=== PATIENT | female | born 1955 | race Caucasian/White ===

== ENCOUNTER → 2024-12-23 11:53 | Outpatient (CLI) | payer MEDICARE, SELFPAY ==
--- NOTE | ~2024-12-23 | XR_ITS ---
AP view of the pelvis and AP and lateral views of the right hip Clinical history: Pain Findings: No acute fracture or dislocation is seen. Old, healed fracture deformity the proximal right femur with orthopedic hardware in place. Osseous alignment is anatomic. Bilateral hip and SI joint s paces are preserved. Vascular stent noted at the mid thigh. Impression: No acute abnormality. Prior ORIF of the proximal right femur with healed fracture deformity. Vascular stent at the right mid thigh. Reviewed, dictated and finalized at location . Impression: No acute abnormality. Prior ORIF of the proximal right femur with healed fracture deformity. Vascular stent at the right mid thigh.
== END ==
PROVIDERS: PCP Nurse Practitioner Family; Visit Provider Nurse Practitioner Family
DX: M84.750A Atypical femoral fracture, unspecified, initial encounter for fracture (principal); M81.0 Age-related osteoporosis without current pathological fracture; Z96.698 Presence of other orthopedic joint implants; Z95.820 Peripheral vascular angioplasty status with implants and grafts; Z87.81 Personal history of (healed) traumatic fracture
CPT/HCPCS: 73502